=== PATIENT | female | born 2000 | race Caucasian/White ===

== ENCOUNTER 2021-12-09 11:49 | Emergency (ER) | payer MEDICAID, OTHER ==
[~2021-12-09] VITALS: Ht 170.2 cm; Wt 77.1 kg
--- NOTE | 2021-12-09 12:03 | NUR ---
Patient ambulatory alert and oriented x4, complaints of left leg pain 8/10 with history of acl surgery. Vitals stable.
--- NOTE | 2021-12-09 12:10 | NUR ---
MD at bedside, medical screening exam in process.
[2021-12-09 12:48] VITALS: BP 122/80
--- NOTE | 2021-12-09 12:50 | NUR ---
Patient discharged to home in stable condition. Written and verbal after care instructions given. Patient verbalizes understanding of instructions. Stressed follow up or return to ER for worsening s/s.
== END 2021-12-09 12:50 | disposition home or self-care (01) ==
LOC: ER 11:49
DX: S83.512A Sprain of anterior cruciate ligament of left knee, initial encounter (principal); X58.XXXA Exposure to other specified factors, initial encounter; Y92.89 Other specified places as the place of occurrence of the external cause; Z87.828 Personal history of other (healed) physical injury and trauma; Z88.0 Allergy status to penicillin
CPT/HCPCS: A4663

== ENCOUNTER 2022-05-08 11:14 | Emergency (ER) | payer MEDICAID, OTHER ==
[~2022-05-08] VITALS: Ht 170.2 cm; Wt 72.6 kg
--- NOTE | 2022-05-08 11:52 | NUR ---
22 y/of f c/c of right ankle pain x 1 day, pt states " twisted while walking". No signs of obvious deformity. Pt able to walk on her own. Swelling noted to right ankle. Xray was ordered at bedside by awaiting results. Pt resting in bed. Pt informed of paln of care. Understanding verbalized Distal BURN OUT TENDER LACE was intact. Pt v/s taken WNL.
--- NOTE | 2022-05-08 12:04 | NUR ---
BP 109/66 P 91 SPO2 98% RA RR 18
[2022-05-08] MEDS ORDERED: IBUP-1955 PO (12:11)
[2022-05-08 12:44] VITALS: BP 106/70
== END 2022-05-08 12:46 | disposition home or self-care (01) ==
LOC: ER 11:16
DX: S93.401A Sprain of unspecified ligament of right ankle, initial encounter (principal); W18.40XA Slipping, tripping and stumbling without falling, unspecified, initial encounter; Y92.89 Other specified places as the place of occurrence of the external cause; Z88.0 Allergy status to penicillin
CPT/HCPCS: 73610; A4663

== ENCOUNTER 2022-07-17 11:44 | Emergency (ER) | payer OTHER ==
[~2022-07-17] VITALS: Ht 170.2 cm; Wt 77.1 kg
[~2022-07-17 11:44] MED LIST: IBUP-1955 PO
[2022-07-17 12:40] LABS: *BILIRUBIN,URIN NEGATIVE (NEGATIVE); *BLOOD, URINE 1+ (NEGATIVE); *CLARITY,URINE CLEAR (CLEAR); *COLOR,URINE YELLOW (YELLOW); *KETONES,URINE NEGATIVE (NEGATIVE); *UROBILINOGEN,URINE 0.2 E.U./dl (NORMAL); LEUKOCYTE ESTERASE ,URINE NEGATIVE (NEGATIVE); NITRITE, URINE NEGATIVE (NEGATIVE); UGLUCOSE NEGATIVE (NEGATIVE)
[2022-07-17 12:52] LABS: *URINE HCG, QUAL NEG (NEGATIVE)
[2022-07-17 13:43] LABS: BACTERIA,URINE FEW /HPF (NONE SEEN); RBC,URINE 0-3 /HPF (0-3); SQUAMOUS EPITHELIAL CELL,UR MODERATE /HPF (NONE SEEN)
--- NOTE | 2022-07-17 14:00 | NUR ---
pt resting in room comfortably, waiting for lab/ct results.
[2022-07-17 14:43] VITALS: BP 139/72
== END 2022-07-17 14:44 | disposition home or self-care (01) ==
LOC: ER 12:12
DX: R10.30 Lower abdominal pain, unspecified (principal); S30.1XXA Contusion of abdominal wall, initial encounter; V49.50XA Passenger injured in collision with unspecified motor vehicles in traffic accident, initial encounter; Y92.410 Unspecified street and highway as the place of occurrence of the external cause; Z88.0 Allergy status to penicillin; R03.0 Elevated blood-pressure reading, without diagnosis of hypertension
CPT/HCPCS: 84703; A4663